=== PATIENT | female | born 1985 | race Caucasian/White ===

== ENCOUNTER → 2017-02-05 | Outpatient (CLI) | payer BC, OTHER ==
[2017-02-06 14:14] LABS: FREE ANDROGEN INDEX 0.7 (0.4-8.4); SEX HORM BINDING GLOB 135.3 nmol/L (24.6-122.0)
== END ==
LOC: M LAB 09:17
DX: E28.2 Polycystic ovarian syndrome (principal)

== ENCOUNTER → 2017-06-18 | Outpatient (REF) | payer OTHER, BC ==
[~2017-06-18] MED LIST: BUSP30TA; CIPR-249 PO; PHEN37.5; TRET0.02; TRINTAB11; VALA1TAB2
== END ==
LOC: M LAB REF 10:26
PROVIDERS: ATTEND Physician Assistant Medical
DX: R30.0 Dysuria (principal)

== ENCOUNTER → 2017-07-01 | Outpatient (REF) | payer BC, OTHER | LOC: M LAB REF 11:00 | PROVIDERS: ATTEND Physician Assistant Medical | DX: N39.0 Urinary tract infection, site not specified (principal) ==

== ENCOUNTER → 2017-07-25 | Outpatient (REF) | payer BC, OTHER | LOC: M LAB REF 10:34 | PROVIDERS: ATTEND Family Medicine | DX: N39.0 Urinary tract infection, site not specified (principal) ==

== ENCOUNTER → 2017-08-09 | Outpatient (CLI) | payer BC, OTHER ==
[~2017-08-09] MED LIST changes: +ISOVUE-370 76% 100ML VIAL (Q9967) As Ordered ONE
--- NOTE | 2017-08-10 05:45 | REP ---
Clinical: Hematuria. Technique: Axial precontrast, contrast enhanced, and delayed images of the abdomen and pelvis using 100 ml Isovue 370 intravenous contrast material with coronal and sagittal re-formations. Findings: Bilateral nonobstructing intrarenal calculi measure up to 4 mm in the left kidney and 8 mm in the right kidney without evidence for perinephric stranding, hydroureteronephrosis or obstructing ureteral calculi. The urinary tract system is otherwise unremarkable and without cystic change or mass lesion. Ureters and bladder appear normal. Liver, spleen, pancreas, gallbladder, bilateral adrenal glands are normal. The enteric system is without obstruction or acute inflammatory process. Normal terminal ileum and appendix are identified in the right lower quadrant. Pelvis demonstrates normal bladder and age-appropriate uterus/adnexa. Multiple phleboliths are identified in the pelvis. No ascites. No adenopathy. No free air. Vasculature appears normal. Evidence for chronic spondylolysis at L5 with associated degenerative disc osteophyte complex and 4 mm of anterolisthesis. Impression: 1. Bilateral nonobstructing renal calculi. Otherwise normal urinary tract system. 2. Chronic L5 spondylolysis with associated spondylolisthesis and degenerative disc osteophyte complex. 3. No further acute abdominopelvic pathology appreciated. Signed by Ross Chun MD 08/10/2017 05:37 A
== END ==
LOC: M RAD 16:44
PROVIDERS: ATTEND Family Medicine
DX: R31.9 Hematuria, unspecified (principal)
CPT/HCPCS: 74178; Q9967

== ENCOUNTER 2017-08-13 13:07 | Emergency (ER) | payer BC, OTHER ==
[~2017-08-13] VITALS: Ht 165.1 cm; Wt 90.9 kg
[2017-08-13 13:08] VITALS: BP 122/80
[2017-08-13] MEDS ORDERED: BUSP30TA (13:22)
[2017-08-13] MEDS ORDERED: VALA1TAB2 (13:22)
[2017-08-13] MEDS ORDERED: PHEN37.5 (13:22)
[2017-08-13] MEDS ORDERED: TRINTAB11 (13:22)
[2017-08-13] MEDS ORDERED: TRET0.02 (13:22)
[2017-08-13] MEDS ORDERED: CIPR-249 PO (14:43)
[2017-08-13] MEDS ORDERED: IBUPROFEN 800 MG TAB PO ONE (14:45)
[2017-08-13] MEDS ORDERED: CIPROFLOXACIN 500 MG TAB PO ONE (14:45)
== END 2017-08-13 14:52 | disposition home or self-care (01) ==
LOC: M ED 13:07
DX: N10 Acute pyelonephritis (principal); N30.00 Acute cystitis without hematuria; Z79.899 Other long term (current) drug therapy; Z88.8 Allergy status to other drugs, medicaments and biological substances; Z88.5 Allergy status to narcotic agent

== ENCOUNTER → 2017-08-13 | Outpatient (CLI) | payer BC, OTHER ==
[~2017-08-13] MED LIST changes: -ISOVUE-370 76% 100ML VIAL (Q9967) As Ordered ONE
[2017-08-13 15:18] LABS: MEAN CORPUSCULAR HEMOGLOBIN 31.4 pg (27.0-33.0); MEAN CORPUSCULAR HGB CONC 34.5 g/dl (32.0-36.5); MEAN CORPUSCULAR VOLUME 91.1 fl (80.0-96.0); PLATELET COUNT, AUTOMATED 281 10^3/uL (150-450); RED CELL DISTRIBUTION WIDTH 11.9 % (11.5-14.5); WHITE BLOOD COUNT 9.7 10^3/uL (4.0-10.0)
[2017-08-13 15:23] LABS: ADD MANUAL DIFFER YES; DIFF SLIDE NUMBER 263
[2017-08-13 16:24] LABS: EOSINOPHILS 3 % (0-5)
[2017-08-13 17:05] LABS: ALBUMIN 3.8 GM/DL (3.2-5.2); ALBUMIN/GLOBULIN RATIO 1.09 (1.00-1.93); ALKALINE PHOSPHATASE 80 U/L (45-117); ALT/SGPT 25 U/L (12-78); ANION GAP 4 MEQ/L (8-16); AST/SGOT 16 U/L (15-37); BILIRUBIN,TOTAL 0.4 MG/DL (0.2-1.0); BLOOD UREA NITROGEN 10 MG/DL (7-18); CALCIUM LEVEL 8.9 MG/DL (8.5-10.1); CARBON DIOXIDE LEVEL 31 MEQ/L (21-32); CHLORIDE LEVEL 105 MEQ/L (98-107); CREATININE FOR GFR 0.77 MG/DL (0.55-1.02); GLOMERULAR FILTRATION RATE > 60.0 (>60); GLUCOSE, FASTING 75 MG/DL (70-105); SODIUM LEVEL 140 MEQ/L (136-145); TOTAL PROTEIN 7.3 GM/DL (6.4-8.2)
== END ==
LOC: M LAB 15:00
PROVIDERS: ATTEND Family Medicine
DX: R31.9 Hematuria, unspecified (principal); R53.81 Other malaise

== ENCOUNTER → 2017-08-29 | Outpatient (REF) | payer OTHER | LOC: M SMT 12:46 | PROVIDERS: ATTEND Nurse Practitioner Women's Health | DX: R31.0 Gross hematuria (principal) ==

== ENCOUNTER → 2017-09-21 | Outpatient (CLI) | payer BC, OTHER ==
--- NOTE | 2017-09-21 14:31 | REP ---
KUB: SINGLE VIEW. HISTORY: Kidney stone. FINDINGS: There is a 9 mm calcific opacity in the region of the right renal pelvis. There are two or three tiny calcific opacities overlying the right kidney. Phleboliths are noted in the pelvis. Psoas margins and flank stripes are intact. Normal bowel gas pattern. IMPRESSION: Right renal nephrolithiasis and possible right ureteropelvic junction stone 9 mm in diameter. Signed by Santiago Burt MD 09/21/2017 04:50 P
== END ==
LOC: M SMT 11:20
PROVIDERS: ATTEND Urology
DX: N20.0 Calculus of kidney (principal)

== ENCOUNTER → 2017-09-26 | Outpatient (CLI) | payer BC, OTHER ==
[2017-09-26 17:24] LABS: MEAN CORPUSCULAR HEMOGLOBIN 31.7 pg (27.0-33.0); MEAN CORPUSCULAR HGB CONC 34.9 g/dl (32.0-36.5); MEAN CORPUSCULAR VOLUME 90.9 fl (80.0-96.0); PLATELET COUNT, AUTOMATED 269 10^3/uL (150-450); RED CELL DISTRIBUTION WIDTH 11.8 % (11.5-14.5)
[2017-09-26 17:38] LABS: ANION GAP 4 MEQ/L (8-16); BLOOD UREA NITROGEN 9 MG/DL (7-18); CALCIUM LEVEL 8.9 MG/DL (8.5-10.1); CARBON DIOXIDE LEVEL 29 MEQ/L (21-32); CHLORIDE LEVEL 106 MEQ/L (98-107); CREATININE FOR GFR 0.63 MG/DL (0.55-1.02); GLOMERULAR FILTRATION RATE > 60.0 (>60); GLUCOSE, FASTING 87 MG/DL (70-105); POTASSIUM SERUM 4.1 MEQ/L (3.5-5.1); SODIUM LEVEL 139 MEQ/L (136-145)
[2017-09-26 17:49] LABS: INR 0.89
== END ==
LOC: M SMT 16:00
PROVIDERS: ATTEND Urology
DX: N20.0 Calculus of kidney (principal)

== ENCOUNTER 2017-10-18 06:44 | Day surgery (SDC) | payer BC, OTHER ==
[~2017-10-18] VITALS: Ht 165.1 cm; Wt 95.3 kg
[~2017-10-18 06:44] MED LIST changes: -BUSP30TA; +BUSP30TA PO; -PHEN37.5; +PHEN37.5 PO; -TRINTAB11; +TRINTAB11 PO; -VALA1TAB2; +VALA1TAB2 PO
[2017-10-18] MEDS ORDERED: PROPOFOL 200 MG/20 ML VIAL As Ordered ONE (07:16)
[2017-10-18] MEDS ORDERED: LIDOCAINE 2% INJ 100 MG/5 ML SDV (FOR ANES.) As Ordered ONE (07:16)
[2017-10-18] MEDS ORDERED: MIDAZOLAM INJ 2 MG/2 ML VIAL (J2250) As Ordered ONE (07:16)
[2017-10-18] MEDS ORDERED: fentaNYL 100 MCG/2 ML INJECTION (J3010) As Ordered ONE (07:17)
[2017-10-18] MEDS ORDERED: LR 1,000 ML IV SCH ×2 (07:30→09:00)
[2017-10-18 07:43] LABS: CONTROL LINE UCG INT CTR LINE PRESENT
[2017-10-18] MEDS ORDERED: ceFAZolin 2 GM/D5W 50 ML IV BAG (J0690 PER 500MG) As Ordered ONE (07:57)
[2017-10-18] MEDS ORDERED: KETAMINE HCL 200 MG/20 ML VIAL As Ordered ONE (08:11)
[2017-10-18] MEDS ORDERED: ONDANSETRON 4MG/2ML VIAL (J2405) As Ordered ONE (08:24)
--- NOTE | 2017-10-18 08:39 | REP ---
ABDOMINAL RADIOGRAPHS: CLINICAL: Nephrolithiasis. TECHNIQUE: Two supine views of the abdomen and pelvis. COMPARISON: 09/21/2017. FINDINGS: 8 mm calculus is identified in the lower pole of the right kidney along with smaller 2-3 mm right intrarenal calculi as well as 2- 3 mm left renal calculus. Calcifications in the pelvis remain stable and likely represent phleboliths. Bowel gas pattern is nonspecific. The skeletal structures are stable. IMPRESSION: Bilateral intrarenal calculi (right greater than left) similar to prior examination. Unreviewed
[2017-10-18] MEDS ORDERED: METOCLOPRAMIDE INJ 10MG/2ML VIAL (J2765) IV PRN (09:00)
[2017-10-18] MEDS ORDERED: NORCO, ANEXSIA 5/325MG TABLET (HYDROcodone/ACETAMINOPHEN) PO PRN (09:00)
[2017-10-18] MEDS ORDERED: ONDANSETRON 4MG/2ML VIAL (J2405) IV PRN (09:00)
[2017-10-18 10:45] VITALS: BP 121/65
--- NOTE | 2017-10-18 18:08 | RO ---
DATE OF PROCEDURE: 10/18/2017 PREPROCEDURE DIAGNOSIS: Right kidney stone. POSTPROCEDURE DIAGNOSIS: Right kidney stone. OPERATIVE PROCEDURE: Right extracorporeal shock wave lithotripsy. SURGEON: Guevara Bowman MD FATBACK TRIMMER: None. ANESTHESIA: Monitored anesthesia care (MAC) OPERATIVE INDICATIONS: This is a 32-year-old female with a 9 mm right kidney stone potentially causing intermittent obstruction. She is brought to the operating room today for the above listed procedure. DESCRIPTION OF PROCEDURE: The patient was brought to the operating room and MAC anesthesia was administered. Prophylactic antibiotics were infused. She was then placed in the supine position and preparation for a right-sided extracorporeal shock wave lithotripsy. Fluoroscopy was utilized to monitor stone position and fragmentation throughout the procedure. Shock waves were then delivered to the right side of the kidney stone, ungated. There were no arrhythmias. The stone did appear to fragment well. After 2500 shocks, the procedure was concluded. The patient was then awakened from anesthesia and transported to the recovery room in stable condition. ESTIMATED BLOOD LOSS: 0 mL INTRAOPERATIVE COMPLICATIONS: None. SPECIMENS: None. PLAN: The patient will followup in the clinic in a few weeks with imaging prior to assess for residual stone burden.
== END 2017-10-18 10:36 | disposition home or self-care (01) ==
LOC: M SDC 06:44
PROVIDERS: ATTEND Urology
DX: N20.0 Calculus of kidney (principal); K21.9 Gastro-esophageal reflux disease without esophagitis; F43.10 Post-traumatic stress disorder, unspecified; F32.9 Major depressive disorder, single episode, unspecified; F41.9 Anxiety disorder, unspecified; Z79.899 Other long term (current) drug therapy; Z88.5 Allergy status to narcotic agent; Z84.89 Family history of other specified conditions
CPT/HCPCS: 50590; 74000; 84703; J0690; J2250; J2405; J3010

== ENCOUNTER → 2017-11-08 | Outpatient (CLI) | payer BC, OTHER | LOC: M SMT 08:44 | DX: N20.0 Calculus of kidney (principal) | CPT/HCPCS: 82360 ==

== ENCOUNTER → 2021-01-26 | Outpatient (REF) | payer OTHER ==
[~2021-01-26] MED LIST changes: -VALA1TAB2 PO; +VALA1TAB5 PO
== END ==
LOC: M LAB REF 17:21
PROVIDERS: ATTEND Physician Assistant
DX: B00.9 Herpesviral infection, unspecified (principal)

== ENCOUNTER → 2021-06-10 | Outpatient (REF) | payer OTHER | LOC: M LAB REF 19:12 | PROVIDERS: ATTEND Physician Assistant | DX: L82.0 Inflamed seborrheic keratosis (principal) ==

== ENCOUNTER → 2022-12-07 | Outpatient (REF) | payer OTHER | LOC: M PLALAB 15:57 | PROVIDERS: ATTEND Advanced Practice Midwife | DX: Z12.4 Encounter for screening for malignant neoplasm of cervix (principal); E28.2 Polycystic ovarian syndrome | CPT/HCPCS: 87624; G0123 ==

== ENCOUNTER → 2022-12-07 | Outpatient (CLI) | payer OTHER ==
[2022-12-07 15:43] LABS: APPEARANCE, URINE MANUAL CLEAR (CLEAR); COLOR, URINE MANUAL COLORLESS (YELLOW)
[2022-12-07 15:44] LABS: BILIRUBIN, URINE MANUAL NEGATIVE (NEGATIVE); BLOOD URINE MANUAL TRACE (NEGATIVE); GLUCOSE, URINE (UA) MANUAL NEGATIVE (NEGATIVE); KETONE, URINE MANUAL NEGATIVE (NEGATIVE); LEUKOCYTE ESTERASE, URINE MAN NEGATIVE (NEGATIVE); NITRITE, URINE MANUAL NEGATIVE (NEGATIVE); PROTEIN, URINE MANUAL NEGATIVE (NEGATIVE); UROBILINOGEN, URINE MANUAL NORMAL (NORMAL)
[2022-12-07 15:58] LABS: BACTERIA, URINE NONE SEEN; HYALINE CAST, URINE NONE SEEN /lpf (0-1); RBC, URINE 0-1 /hpf (0-3); SQUAMOUS EPITHELIAL CELL URINE SMALL AMOUNT /hpf (SMALL AMT); WBC, URINE 0-1 /hpf (0-3)
[2022-12-07 16:05] LABS: HEMOGLOBIN A1c 4.5 % (4.0-6.0)
[2022-12-07 16:13] LABS: FOLLICLE STIMULATING HORMONE 12.2 mIU/ML; PROLACTIN 12.89 NG/ML; THYROID STIMULATING HORMONE 2.62 uIU/ML (0.55-4.78)
[2022-12-07 16:14] LABS: FREE T4 0.92 NG/DL (0.89-1.76); LUTEINIZING HORMONE 4.6 mIU/ML
== END ==
LOC: M PLALAB 12:15
PROVIDERS: ATTEND Advanced Practice Midwife
DX: E28.2 Polycystic ovarian syndrome (principal)

== ENCOUNTER → 2024-01-23 | Outpatient (REF) | payer OTHER | LOC: M SFHCWAGY 13:23 | PROVIDERS: ATTEND Advanced Practice Midwife | DX: Z12.4 Encounter for screening for malignant neoplasm of cervix (principal); B37.31 Acute candidiasis of vulva and vagina | CPT/HCPCS: 87624; G0123 ==

== ENCOUNTER → 2025-01-28 | Outpatient (CLI) | payer OTHER ==
[2025-01-28 16:39] LABS: HEMATOCRIT 39.6 % (36.0-47.0); HEMOGLOBIN 14.2 g/dl (12.0-15.5); MEAN CORPUSCULAR HEMOGLOBIN 35.1 pg (27.0-33.0); MEAN CORPUSCULAR HGB CONC 35.9 g/dl (32.0-36.5); PLATELET COUNT, AUTOMATED 327 10^3/uL (150-450); RED BLOOD COUNT 4.04 10^6/uL (4.00-5.40); WHITE BLOOD COUNT 8.3 10^3/uL (4.0-10.0)
[2025-01-28 17:13] LABS: THYROID STIMULATING HORMONE 2.233 uIU/ML (0.55-4.78)
[2025-01-28 17:14] LABS: FREE T4 0.88 NG/DL (0.89-1.76)
== END ==
LOC: M PLALAB 14:12
PROVIDERS: ATTEND Advanced Practice Midwife
DX: N93.9 Abnormal uterine and vaginal bleeding, unspecified (principal)

== ENCOUNTER → 2025-02-09 | Outpatient (CLI) | payer OTHER | LOC: M RAD 06:59 | PROVIDERS: ATTEND Advanced Practice Midwife | DX: N93.9 Abnormal uterine and vaginal bleeding, unspecified (principal) ==